=== PATIENT | female | born 1970 | race Caucasian/White ===

== ENCOUNTER 2019-07-29 09:30 | Emergency (ER) | payer OTHER ==
--- OUTSIDE RECORDS SUMMARY | 2019-07-29 09:35 | XMS REPORT | Continuity of Care Document ---
:1970 External Reference #:[id number] Author Name Joan Max M.D. Address [address] [place] [address] Care Team Providers Name Role Phone [facility] - Care Team Information Data Center Consultant [phone] [facility] - Endocrinology, Diabetes & Care Team Information Data Center Consultant [phone] Metabolism Yovani Arreola MD - Gastroenterology Care Team Information Data Center Consultant [phone] Problems Active Problems Provider Date Mixed hyperlipidemia Joan Max M.D. Onset: 07/02/2019 Impaired fasting glycaemia Joan Max M.D. Onset: 03/20/2018 Posterior rhinorrhea Aashish Wells M.D. Onset: 01/13/2015 Hyperlipidemia Joan Max M.D. Onset: 06/17/2014 Migraine without aura, not refractory Joan Max M.D. Onset: 2013 Multiple joint pain Joan Max M.D. Onset: 07/16/2012 Vulvar vestibulitis Joan Max M.D. Onset: 06/15/2011 Common cold Satish Su M.D. Onset: 06/07/2011 Endometriosis (clinical) Joan Max M.D. Onset: 03/20/2011 Hypothyroidism Joan Max M.D. Onset: 03/20/2011 Myalgia & Myositis Unspecified Joan Max M.D. Onset: 03/20/2011 Constipation Joan Max M.D. Onset: 03/20/2011 Social History Type Date Description Comments Sex Unknown Tobacco Use Start: Unknown Never Smoked Cigarettes Smoking Status Reviewed: 07/02/19 Never Smoked Cigarettes ETOH Use Rare can go months without a drink. rare - on holidays. Tobacco Use Start: Unknown Patient has never smoked Allergies, Adverse Reactions, Alerts Description No Known Drug Allergies Medications Active Medications SIG Qnty Indications Ordering Provider Date Propranolol HCL 1 by mouth daily 30tabs Joan LJohnny 07/02/2019 40mg Marilyn Max Tablets Amitriptyline HCL Take 1 Tablet By 90tabs Joan L. 03/25/2019 Mouth AT Bedtime Marilyn Max 75mg Tablets Levothyroxine Sodium Take 1 Tablet By 90tabs E03.9 Joan L. 08/23/2017 Mouth Daily Marilyn Max 125mcg Tablets Calcium 1200+D3 Joan L. 06/17/2014 Marilyn Max Tablets ER 24HR Vitamin C 1 po qd Family [facility] 06/12/2012 [facility]ts [facility] Fish Oil 1 po qd Family [facility] 10/02/2011 Capsules [facility] Norethindrone 1/2 other day po 30tabs Joan Lai 12/03/2010 Acetate Marilyn Max 5mg Tablets Multi Vit Jayde Fairchild, 10/19/2010 Marilyn Zolmitriptan take 1 tablet by Unknown 5mg mouth at beginning Tablets of headache, may repeat in two hours - max 2 per day mdd 2 Magnesium 3 by mouth every Unknown 200mg day Tablets Naproxen Sodium 2 tabs by mouth w/ Unknown 220mg the Zolmitriptan as Tablets needed Immunizations CPT Code Status Date Vaccine Lot # [id number] Given 10/12/2018 MMR Virus Immunization [id number] Given 03/19/2016 Influenza Vac, [place]riv[place], [place] [id number] Given 03/27/2015 Influenza Vac, [place]riv[place], [place] [id number] Given 03/15/2011 DO Not Use Split Influenza Virus Vaccine [id number] Given 01/16/2010 Tdap Tetanus, W Pertussis Vital Signs Date Vital Result Comment 07/02/2019 1:04pm BP Systolic 108 mmHg BP Diastolic 66 mmHg Heart Rate 76 /min Body Temperature 98.2 F Height 63 inches 5'3" Weight 183.00 lb BMI (Body Mass Index) 32.4 kg/m2 10/23/2018 9:25am BP Systolic 122 mmHg BP Diastolic 72 mmHg Heart Rate 86 /min Body Temperature 97.9 F Respiratory Rate 17 /min Height 63 inches 5'3" Weight 178.00 lb BMI (Body Mass Index) 31.5 kg/m2 Results Test Acquired Date Facility Test Result H/L Range Note Comprehensive 06/24/2019 [facility]) Sodium 135 mEq/L 134-149 Metabolic Prof Potassium 4.3 mEq/L 3.6-5.5 Chloride 106 mEq/L 94-112 Carbon Dioxide 23 mEq/L 21-32 Glucose 120 mg/dL High 70-105 BUN 16 mg/dL 6-26 Creatinine 0.8 mg/dL 0.6-1.4 BUN/Creat Ratio 20.0 CALC 8.0-36.0 Calcium 9.9 mg/dL 8.6-10.2 Total Protein 7.3 g/dL 6.4-8.3 Albumin 4.7 g/dL 3.8-5.5 Globulin 2.6 g/dL 2.0-4.8 A/G Ratio 1.8 CALC 0.6-2.3 Alk. Phosphatase 91 U/L 30-110 Alt (SGPT) 54 U/L High 7-35 Ast (Sgot) 35 U/L High 5-34 Total Bilirubin 0.4 mg/dL 0.2-1.3 GFR Non- >60 ml/min/1.73m^ >=60 GFR >60 ml/min/1.73m^ >=60 Lipid Profile 06/24/2019 [facility]) Cholesterol 243 mg/dL High 120-200 Triglycerides 93 mg/dL 30-200 HDL Cholesterol 44 mg/dL 30-85 LDL (Calculated) 180 CALC High 0-129 VLDL Cholesterol 19 mg/dL 0-50 HDL Risk Factor 5.5 CALC High 0.0-4.4 CBC Electronic [facility]ma 06/24/2019 [facility](a) WBC 11.1 x10^3/UL High 4.0-10.0 RBC 4.81 x10^6/UL 3.93-6.00 HGB 15.1 g/dL 12.0-17.0 HCT 45 % 35-50 MCV 92.5 fL 80.0-95.0 MCH 31.4 pg 25.6-32.2 MCHC 33.9 g/dL 32.2-36.0 RDW-CV 12.9 % 11.6-14.4 PLT 295 x10^3/UL 163-400 MPV 9.1 fL Low 9.4-12.4 Susanna# 6.14 x10^3/UL High 1.56-6.13 Lymph# 3.74 x10^3/UL 1.18-3.74 Menard# 0.93 x10^3/UL High 0.24-0.82 Eos # 0.2 x10^3/UL 0.0-0.5 Baso # 0.05 x10^3/UL 0.01-0.08 Susanna% 55.3 % 34.0-70.0 Lymph % 33.8 % 20.0-52.0 Menard% 8.4 % 5.0-12.0 Eos% 1.6 % 0.7-7.0 Baso% 0.5 % 0.1-1.2 Laboratory test finding 06/24/2019 [facility]) TSH 2.86 mIU/L 0.50-6.00 Procedures Date Code Description Status 09/02/2018 [id number] Mammogram Completed 07/14/2016 [id number] Mammogram Completed 06/28/2015 [id number] Mammogram Completed 06/25/2014 [id number] Mammogram Completed 08/27/2012 [id number] Colonoscopy Completed 06/13/2012 [id number] Mammogram Completed Medical Devices Description No Information Available Encounters Description No Information Available Assessments Date Code Description Provider 07/02/2019 Z00.00 Encounter for general adult medical Joan Max M.D. examination without abnormal findings 07/02/2019 E55.9 Vitamin D deficiency, unspecified Joan Max M.D. 07/02/2019 E03.9 Hypothyroidism, unspecified Joan Max M.D. 07/02/2019 E78.49 Other hyperlipidemia Joan Max M.D. 07/02/2019 R73.01 Impaired fasting glucose Joan Max M.D. 07/02/2019 G43.009 Migraine without aura, not intractable, Joan Max M.D. without status migrainosus 07/02/2019 D72.829 Elevated white blood cell count, Joan Max M.D. unspecified 07/02/2019 R74.8 Abnormal levels of other serum enzymes Joan Max M.D. 06/24/2019 Z00.00 Encounter for general adult medical Joan Max M.D. examination without abnormal findings 06/24/2019 E03.9 Hypothyroidism, unspecified Joan Max M.D. Plan of Treatment Future Appointment(s):10/09/2019 8:30 am - Joan Max M.D. at [facility]07/02/2019 - Joan Max M.D.Z00.00 Encounter for general adult medical examination without abnormal findingsComments:You are in good general health. I recommend regular physical exams with attention to good nutritionand exercise, eye exams every other year, and dental exams twice yearly. Goals:2 fresh fruits shfvk3yuvusied of fresh green and multicolored vegetablesEat from the whole color spectrum. 40-60 [place] dailyMOVE YOUR BODY. Bodies were made to be moved. exercise 30 minutes at least 4-5 times emfcglC94.9 Vitamin D deficiency, unspecifiedNew Labs:Vitamin D, 25Hydroxy(Fma/ LC, Ordered: 07/02/19E03.9 Hypothyroidism, unspecifiedComments:Stable. Continue present meds.E78.49 Other hyperlipidemiaComments:risk factor is 1.3%.. no need for medicationi at this point.R73.01 Impaired fasting glucoseNew Labs: Hemoglobin A1c, Ordered: 07/02/19CBC Electronic (Fma), Ordered: 07/02/19G43.009 Migraine without aura, not intractable, without status migrainosusComments: would like a new neurologist. 'you will wean down your propranolol.D72.829 Elevated white blood cell count, [id number] Abnormal levels of other serum enzymesNew Xrays:Ultrasound Abdominal Complete, Ordered: 07/02/19AllNew Medication:Propranolol HCL 40 mg - 1 by mouth dailyComments:Medication Management Patient Understands medications she 's taking? Yes No Are there Barriers to Adherence? Yes No Has the patient been asked about herbal supplements and therapies, and OTC meds? Yes No Care Plan1. Patient has been queried about patient's goals/preferences and functional/lifestyle goals at relevant visits. If relevant, describe: na2. Treatment goals as explained to the patient: above3. Are there barriers to meeting treatment goals? Yes No If Yes, please describe:4. Self- Management goals as described to the patient: Yes No Functional Status Description No Information Available Mental Status Description No Information Available Referrals Description No Information Available
[2019-07-29 09:41] VITALS: BP 103/57
--- NOTE | 2019-07-29 10:18 | UC ---
FLU HPI - HPI Summary HPI Summary: 48-year-old female presents with sudden onset of general malaise, fatigue, body aches, nasal congestion, sore throat, and dry nonproductive cough yesterday. No measured fever however reports chills. Daughter recently tested positive for influenza A. Denies ear pain, dysphagia, chest pain, shortness of breath, abdominal pain, nausea, vomiting, or diarrhea. - History of Current Complaint Chief Complaint: UCGeneralIllness Stated Complaint: FLU LIKE SYMPTOMS Time Seen by Provider: 07/29/19 10:05 Hx Obtained From: Patient Pain Intensity: 2 - Allergy/Home Medications Allergies/Adverse Reactions: Allergies Allergy/AdvReac Type Severity Reaction Status Date / Time No Known Allergies Allergy Verified 07/29/19 09:35 PMH/Surg Hx/FS Hx/Imm Hx Endocrine History: Thyroid Disease - Surgical History Surgical History: Yes Surgery Procedure, Year, and Place: endometriosis laproscopy-[facility]. adrenal cyst removal[facility]. [facility] - Family History Known Family History: Positive: Hypertension - Social History Occupation: Employed Full-time Lives: With Family Alcohol Use: Occasionally Substance Use Type: None Smoking Status (MU): Never Smoked Tobacco Review of Systems All Other Systems Reviewed And Are Negative: Yes Constitutional: Positive: Chills, Fatigue Skin: Negative: Rash Eyes: Negative: Drainage, Eye Redness ENT: Positive: Sore Throat, Nasal Discharge, Sinus Congestion. Negative: Ear Ache, Sinus Pain/Tenderness Respiratory: Positive: Cough. Negative: Shortness Of Breath Cardiovascular: Negative: Palpitations, Chest Pain Gastrointestinal: Negative: Abdominal Pain, Vomiting, Diarrhea, Nausea Genitourinary: Positive: Negative Musculoskeletal: Positive: Myalgia Neurological/Mental Status: Positive: Negative Is Patient Immunocompromised?: No Physical Exam - Summary Physical Exam Summary: GENERAL APPEARANCE: Alert and cooperative adult female who appears to be in no acute distress. EYES: Conjunctiva clear. No drainage. EARS: External auditory canals and tympanic membranes clear, hearing grossly intact. NOSE: Mild to moderate nasal congestion. No nasal discharge. THROAT: Pharyngeal erythema. No tonsilar inflammation, swelling, exudate, or lesions. Uvula midline. NECK: Neck supple, non-tender without lymphadenopathy. CARDIAC: Normal S1 and S2. No S3, S4 or murmurs. Rhythm is regular. There is no peripheral edema, cyanosis or pallor. Extremities are warm and well perfused. Capillary refill is less than 2 seconds. Peripheral pulses intact. LUNGS: Clear to auscultation without rales, rhonchi, wheezing or diminished breath sounds. Dry nonproductive cough ABDOMEN: Positive bowel sounds. Soft, nondistended, nontender. No guarding or rebound. No masses or hepatosplenomegally. MUSKULOSKELETAL: ROM intact to all extremities. No joint erythema or tenderness. Normal muscular development. Normal gait. SKIN: Skin normal color, texture and turgor with no lesions or eruptions. Triage Information Reviewed: Yes Vital Signs: Initial Vital Signs Temp 98.7 F 07/29/19 09:37 Pulse 86 07/29/19 09:37 Resp 18 07/29/19 09:37 BP 103/57 07/29/19 09:37 Pulse Ox 100 07/29/19 09:37 Vital Signs Reviewed: Yes Flu Course/Dx - Course Course Of Treatment: 48-year-old female presents with sudden onset of general malaise, fatigue, body aches, nasal congestion, sore throat, and dry nonproductive cough yesterday. No measured fever however reports chills. Daughter recently tested positive for influenza A. Denies ear pain, dysphagia, chest pain, shortness of breath, abdominal pain, nausea, vomiting, or diarrhea. Afebrile. Vital signs stable. Patient had mild to moderate nasal congestion, normal TMs, pharyngeal erythema without tonsillar swelling or exudate, no cervical lymphadenopathy, clear bilateral breath sounds, dry nonproductive cough, and otherwise unremarkable exam. Rapid influenza is positive for influenza A. Discussed risks and benefits of treating with Tamiflu and patient is electing to start at this time as well as use symptomatic treatment including Tessalon Perles 1 capsule every 8 hours as needed for cough. She is to follow-up with her primary care provider in 5-7 days if symptoms are not improving. Anticipatory guidance and warning symptoms are reviewed with the patient. Verbalizes understanding and agrees with plan of care. - Differential Dx/Diagnosis Differential Diagnosis/HQI/PQRI: Bronchitis, Influenza, Pneumonia, Upper Respiratory Infection Provider Diagnosis: Influenza A Discharge ED - Sign-Out/Discharge Documenting (check all that apply): Patient Departure All imaging exams completed and their final reports reviewed: No Studies - Discharge Plan Condition: Stable Disposition: HOME Prescriptions: Benzonatate CAP* [Tessalon 100 MG CAP*] 100 mg PO TID PRN #21 cap PRN Reason: Cough Oseltamivir CAP* [Tamiflu CAP*] 75 mg PO BID #10 cap Patient Education Materials: Influenza (ED) Referrals: Joan Max MD [Primary Care Provider] - 5 Days Additional Instructions: Your flu test in the clinic today was positive for influenza A. Start Tamiflu 1 capsule twice a day for 5 days. Get plenty of rest. Drink plenty of fluids to avoid dehydration especially if you are running any fever. Take over the counter acetaminophen (Tylenol) or ibuprofen (Advil, Motrin) according to directions as needed for pain or fever. Use an over the counter decongestant such as Sudafed to help with the congestion. Take Tessalon Perles 1 cap every 8 hours as needed for cough. Use salt water gargles several times a day if you have a sore throat. You may also use Chloraseptic spray or Cepacol lonzenges according to directions which contain a numbing medication and can provide some temporary relief from your sore throat. Follow up with your primary care provider in 5-7 days if symptoms persist. Seek immediate medical attention in the emergency room if you have fever greater than 100.5 F despite taking acetaminophen or ibuprofen, have chest pain , difficulty breathing, are unable to swallow, or have any worsening of symptoms. - Billing Disposition and Condition Condition: STABLE Disposition: Home
[2019-07-29 10:19] LABS: Influenza A Molecular POSITIVE (Negative)
== END 2019-07-29 10:38 | disposition home or self-care (01) ==
LOC: UCEAST 09:30
DX: J10.1 Influenza due to other identified influenza virus with other respiratory manifestations (principal)
CPT/HCPCS: 87651; 99212; G0463